=== PATIENT | female | born 2000 | race Caucasian/White ===

== ENCOUNTER 2022-04-29 18:10 | Emergency (ER) | payer OTHER ==
[~2022-04-29] VITALS: Ht 180 cm; Wt 70.0 kg
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
--- NOTE | 2022-04-29 18:58 | Diagnostic Imaging Report ---
INDICATION: Fall with bilateral knee pain. EXAMINATION: AP, oblique and lateral views of the knees were obtained, bilaterally. FINDINGS: No acute fracture or dislocation is identified. No abnormal lytic or sclerotic focus is seen, and there is no radiopaque foreign body. IMPRESSION: No acute abnormality. Dictated by: Dictated on workstation # [id number]
[2022-04-29 19:23] VITALS: BP 124/86
== END 2022-04-29 19:28 | disposition home or self-care (01) ==
LOC: ER 18:13
DX: S80.212A Abrasion, left knee, initial encounter (principal); S80.211A Abrasion, right knee, initial encounter; V00.831A Fall from motorized mobility scooter, initial encounter; Y93.I9 Activity, other involving external motion; Y92.410 Unspecified street and highway as the place of occurrence of the external cause
CPT/HCPCS: 99283

== ENCOUNTER → 2022-06-01 | Outpatient (CLI) | payer OTHER ==
--- NOTE | 2022-06-01 15:51 | Diagnostic Imaging Report ---
INDICATION: Right ankle pain AP, oblique and lateral views of the right ankle are obtained. FINDINGS: No acute fracture or dislocation is identified. No abnormal lytic or sclerotic focus is seen, and there is no radiopaque foreign body. IMPRESSION: No acute abnormality. Dictated by: Dictated on workstation # [id number]
== END ==
LOC: RAD 15:03
PROVIDERS: ATTEND Nurse Practitioner Family
DX: S99.911A Unspecified injury of right ankle, initial encounter (principal); X58.XXXA Exposure to other specified factors, initial encounter
CPT/HCPCS: 73610